=== PATIENT | female | born 1980 | race Caucasian/White ===

== ENCOUNTER 2016-07-24 11:48 | Emergency (ER) | payer OTHER ==
[2016-07-24 11:48] VITALS: BMI 28.3
[2016-07-24 12:19] VITALS: TEMP 98; O2SAT 100
[2016-07-24] MEDS ORDERED: Famotidine 20mg/50ml 50 ML IV STA (12:51)
[2016-07-24 13:08] LABS: PH,URINE 7.5 (4.7-8.0); URINE BILIRUBIN NEGATIVE (NEGATIVE); URINE BLOOD SMALL (NEGATIVE); URINE GLUCOSE (UA) NEGATIVE (NEGATIVE); URINE KETONE NEGATIVE (NEGATIVE); URINE LEUKOCYTE ESTERASE TRACE Leu/uL (NEGATIVE); URINE PROTEIN NEGATIVE mg/dL (<30 mg/dL); URINE UROBILINOGEN 0.2 E.U./dL (<1 E.U./dL)
[2016-07-24 13:11] LABS: URINE APPEARANCE CLEAR (CLEAR); URINE COLOR YELLOW (YELLOW)
[2016-07-24 13:28] LABS: ADD MANUAL DIFF? NO
[2016-07-24 13:41] LABS: ALB/GLOB RATIO 0.9 (1.1-1.8); ALKALINE PHOSPHATASE 39 U/L (38-133); ALT/SGPT 10 U/L (7-56); AST/SGOT 37 U/L (15-39); BLOOD UREA NITROGEN 14 mg/dL (7-21); CALCIUM 9.9 mg/dL (8.4-10.5); CARBON DIOXIDE 27 mmol/L (21-33); CHLORIDE 98 mmol/L (98-107); GFR AFRICAN-AMERICAN > 60; GLUCOSE,RANDOM 81 mg/dL (70-110); LIPASE 153 U/L (23-300); POTASSIUM 4.9 mmol/L (3.6-5.0); SODIUM 136 mmol/L (132-148); TOTAL PROTEIN 9.3 g/dL (5.8-8.3)
[2016-07-24] MEDS ORDERED: Iohexol 350 MG/100 ML VIAL ONE (13:54)
[2016-07-24 13:55] LABS: BASO # 0.02 K/mm3 (0.0-2.0); BASO % 0.5 % (0.0-3.0); EOS # 0.1 (0.0-0.7); EOS % 1.4 % (1.5-5.0); GRAN # 1.94 (1.4-6.5); GRAN % 44.1 % (50.0-68.0); HEMATOCRIT 37.6 % (36.0-48.0); LYMPH # 2.2 (1.2-3.4); LYMPH % 49.4 % (22.0-35.0); MEAN CELL VOLUME 87.2 fL (80.0-105.0); MEAN CORPUSCULAR HEMOGLOBIN 28.8 pg (25.0-35.0); MEAN PLATELET VOLUME 12.2 fl (7.0-11.0); MONO # 0.2 (0.1-0.6); MONO % 4.6 % (1.0-6.0); PLATELET COUNT 265 10^3/uL (120.0-450.0); RED CELL DISTRIBUTION WIDTH 13.9 % (11.5-14.5); WHITE BLOOD COUNT 4.4 10^3/ul (4.5-11.0)
[2016-07-24 13:58] LABS: INR 0.91 (0.93-1.08); PARTIAL THROMBOPLASTIN TIME 23.7 Seconds (23.7-30.8)
--- NOTE | 2016-07-24 15:09 | ED PDOC ---
Arrival/HPI - General Chief Complaint: GI Problem Time Seen by Provider: 07/24/16 12:48 - History of Present Illness Narrative History of Present Illness (Text): 07/24/16 15:01 35-year-old female presents emergency Department with one-week duration generalized abdominal pain. Patient states that she has no relieving or exacerbating factors to her pain, which feels like cramping. Denies nausea or vomiting. States that her stool has been more loose than usual. Denies recent travel. Denies fevers or chills. Past Medical History - Provider Review Nursing Documentation Reviewed: Yes - Past History Past History: No Previous - Infectious Disease Hx of Infectious Diseases: None - Tetanus Immunization Tetanus Immunization: Unknown - Past Medical History Past Medical History: No Previous - Psychiatric Hx Substance Use: No - Past Surgical History Past Surgical History: No Previous Family/Social History Family/Social History: Unknown Family HX Smoking Status: Never Smoked Hx Alcohol Use: No Hx Substance Use: No Allergies/Home Meds Allergies/Adverse Reactions: Allergies No Known Allergies Allergy (Verified 07/24/16 12:19) Physical Exam - Physical Exam Narrative Physical Exam (Text): - Review of Systems Constitutional: Normal. absent: Fatigue, Weight Change, Fevers Eyes: Normal ENT: denies sore throat, denies tristhmus Respiratory: Normal. absent: SOB, Cough, Sputum Cardiovascular: absent: Chest Pain, Palpitations, Syncope Gastrointestinal: Abdominal Pain. absent: Diarrhea, Nausea, Vomiting Genitourinary: Normal. absent: Dysuria, Frequency, Hematuria, vaginal bleeding Musculoskeletal: Normal. absent: Arthralgias, Back Pain, Neck Pain Skin: no rashes, no erythema Neurological: absent: Focal Weakness Endocrine: Normal Hemo/Lymphatic: Normal Psychiatric: No suicidal or homicidal ideations Physical exam Patient appears age appropriate in no distress, speaking full sentences without difficulty - Systems Exam Head: Present: Atraumatic, Normocephalic Pupils: Present: PERRL Extroacular Muscles: Present: EOMI Conjunctiva: Present: Normal Mouth: Present: Moist Mucous Membranes Neck: Present: Normal Range of Motion. No: MIDLINE TENDERNESS, Paraspinal Tenderness Respiratory/Chest: Present: Clear to Auscultation, Good Air Exchange. No: Respiratory Distress, Accessory Muscle Use, Tachypneic Cardiovascular: Present: Regular Rate and Rhythm, Normal S1, S2, Peripheal Pulses Present. No: Murmurs Abdomen: Present: Normal Bowel Sounds. Right lower quadrant, left lower quadrant, suprapubic, right upper quadrant tenderness palpation. No: Distention , Peritoneal Signs, Rebound, Guarding Back: Present: Normal Inspection. No: Midline Tenderness, Paraspinal Tenderness Upper Extremity: Present: Normal Inspection. No: Cyanosis, Edema Lower Extremity: Present: Normal Inspection. No: Edema Neurological: Present: GCS=15, Speech Normal, cranial nerves II through XII fully intact with no cerebellar abnormality, neurosensory fully intact. No focal neurological deficits. Skin: Present: Warm, Dry, Normal Color. No: Rashes Lymphatic: Present: OX3, NI, NC Psychiatric: Present: Alert, Oriented x 3, Normal Insight, Normal Concentration Vital Signs Reviewed: Yes Vital Signs Temp Pulse Resp BP Pulse Ox 07/24/16 15:22 78 16 115/70 100 07/24/16 12:14 98 F 79 18 128/82 100 Temperature: Afebrile Blood Pressure: Normal Pulse: Regular Respiratory Rate: Normal Appearance: Positive for: Well-Appearing Pain Distress: None Mental Status: Positive for: Alert and Oriented X 3 Medical Decision Making ED Course and Treatment: 07/24/16 15:09 35-year-old female with one week duration diffuse abdominal discomfort. Abdomen tender to palpation on examination, with no rebound or guarding. Imaging, labs, and pain meds ordered. 07/24/16 16:19 No acute findings on patient's CAT scan 07/24/16 17:06 On reevaluation, patient reports that she feels much better and would like to be discharged home. Patient's repeat abdominal exam is soft, nontender, non distended with positive bowel sounds in all 4 quadrants and no peritoneal signs. Patient is tolerating PO without any difficulty. Patient had a prescription with her for H. pylori testing to be done. I recommended the patient follow up with a blister packaging machine operator and outpatient laboratory for further H. pylori workup and testing. I also explained that this may be the cause of her symptoms, went over proper dieting, and also let her know that she will be receiving a PPI prescription. Pt states she understands to return to the ER right away for new or worsening symptoms or for inability to f/u with PMD or specialist as instructed. Patient states that she fully agrees with and understands discharge instructions. States that she agrees with the plan and disposition. Verbalized and repeated discharge instructions and plan. I have given the patient opportunity to ask any additional questions. Patient encounter provided via chart collector service, [facility] - Lab Interpretations Lab Results: 07/24/16 13:27 07/24/16 13:27 Lab Results 07/24/16 13:27: WBC 4.4 L, RBC 4.31, Hgb 12.4, Hct 37.6, MCV 87.2, MCH 28.8, MCHC 33.0, RDW 13.9, Plt Count 265, MPV 12.2 H, Gran % 44.1 L, Lymph % (Auto) 49.4 H, [place] % (Auto) 4.6, Eos % (Auto) 1.4 L, Baso % (Auto) 0.5, Gran # 1.94, Lymph # 2.2, [place] # 0.2, Eos # 0.1, Baso # 0.02, PT 9.8 L, INR 0.91 L, APTT 23.7 , Sodium 136, Potassium 4.9, Chloride 98, Carbon Dioxide 27, Anion Gap 16, BUN 14, Creatinine 0.6, Est GFR ( Amer) > 60, Est GFR (Non-Af Amer) > 60, Random Glucose 81, Calcium 9.9, Total Bilirubin 1.0, AST 37, ALT 10, Alkaline Phosphatase 39, Total Protein 9.3 H, Albumin 4.5, Globulin 4.8, Albumin/ Globulin Ratio 0.9 L, Lipase 153 07/24/16 13:00: Urine Color Yellow, Urine Appearance Clear, Urine pH 7.5, Ur Specific [place] 1.015, Urine Protein Negative, Urine Glucose (UA) Negative, Urine Ketones Negative, Urine Blood Small H, Urine Nitrate Negative, Urine Bilirubin Negative, Urine Urobilinogen 0.2, Ur Leukocyte Esterase Trace H, Urine RBC 1 - 3, Urine WBC 1 - 3, Ur Epithelial Cells 3 - 4 - RAD Interpretation Narrative RAD Interpretations (Text): 07/24/16 16:19 Pinball Machine Repairer : Luis Cristina MD Approver2 : Report Date : 07/24/2016 15:25:08 My Comment : PROCEDURE: CT Abdomen and Pelvis with contrast HISTORY: abd pain COMPARISON: None. TECHNIQUE: Contrast dose: 100 mL Omnipaque 350 Radiation dose: Total exam DLP = 402.83 mGy-cm. FINDINGS: LOWER THORAX: Unremarkable. LIVER: Unremarkable. No gross lesion or ductal dilatation. GALLBLADDER AND BILE DUCTS: Unremarkable. PANCREAS: Unremarkable. No gross lesion or ductal dilatation. SPLEEN: Unremarkable. ADRENALS: Unremarkable. No mass. KIDNEYS AND URETERS: Unremarkable. No hydronephrosis. No solid mass. VASCULATURE: Unremarkable. No aortic aneurysm. BOWEL: Unremarkable. No obstruction. No gross mural thickening. APPENDIX: Normal appendix. PERITONEUM: Trace fluid in cul-de-sac. LYMPH NODES: Unremarkable. No enlarged lymph nodes. BLADDER: Unremarkable. REPRODUCTIVE: Normal uterus. BONES: No acute fracture. OTHER FINDINGS: None. IMPRESSION: Unremarkable abdominal/ pelvic CT examination. Radiology Orders: 07/24/16 12:48 ABD & PELVIS IV CONTRAST ONLY [CT] Stat Edge Stainer Machine: Radiologist - Medication Orders Current Medication Orders: Discontinued Medications Famotidine (Pepcid 20mg/50ml Premix) 50 mls @ 100 mls/hr IV STAT STA Stop: 07/24/16 13:20 Last Admin: 07/24/16 13:27 Dose: 100 MLS/HR eMAR Start Stop Document 07/24/16 13:27 SF (Rec: 07/24/16 13:28 [id number] Intravenous Solution Start Date 07/24/16 Start Time 13:28 End Date 07/24/16 End time 13:58 Total Infusion Time 30 Iohexol (Omnipaque 350 100 Ml) Confirm Administered Dose 350 mg .ROUTE .STK-MED ONE Stop: 07/24/16 13:55 Ketorolac Tromethamine (Toradol) 15 mg IVP STAT STA Stop: 07/24/16 12:52 Last Admin: 07/24/16 13:28 Dose: 15 MG IVP Administration Document 07/24/16 13:28 SF (Rec: 07/24/16 13:28 SF [id number]) Charges for Administration # of IVP Administrations 1 Ondansetron HCl (Zofran Inj) 4 mg IVP STAT STA Stop: 07/24/16 12:52 Last Admin: 07/24/16 13:28 Dose: 4 MG IVP Administration Document 07/24/16 13:28 SF (Rec: 07/24/16 13:28 [id number]) Charges for Administration # of IVP Administrations 1 Disposition/Present on Arrival - Present on Arrival Any Indicators Present on Arrival: No History of DVT/PE: No History of Uncontrolled Diabetes: No Urinary Catheter: No History of Decub. Ulcer: No History Surgical Site Infection Following: None - Disposition Have Diagnosis and Disposition been Completed?: Yes Diagnosis: Abdominal pain Disposition: HOME/ ROUTINE Disposition Time: 17:06 Patient Plan: Discharge Condition: GOOD Discharge Instructions (ExitCare): Abdominal Pain (ED), Gas and Bloating (ED) Additional Instructions: PLEASE RETURN TO THE EMERGENCY DEPARTMENT FOR NEW OR WORSENING SYMPTOMS. RETURN RIGHT AWAY IF YOU CANNOT FOLLOW UP WITH YOUR PRIMARY CARE DOCTOR, CLINIC, OR SPECIALIST IN 1-2 DAYS. Prescriptions: Pantoprazole Sodium [Protonix] 40 mg PO DAILY #14 ect Referrals: PCP,NO [Primary Care Provider] - Follow up with primary Cat Killian MD [Staff Provider] - Follow up with primary Zulay Cowart MD [Medical Doctor] - Follow up with primary
[2016-07-24 15:23] VITALS: RESP 16
--- NOTE | 2016-07-24 15:26 | CT ---
PROCEDURE: CT Abdomen and Pelvis with contrast HISTORY: abd pain COMPARISON: None. TECHNIQUE: Contrast dose: 100 mL Omnipaque 350 Radiation dose: Total exam DLP = 402.83 mGy-cm. FINDINGS: LOWER THORAX: Unremarkable. LIVER: Unremarkable. No gross lesion or ductal dilatation. GALLBLADDER AND BILE DUCTS: Unremarkable. PANCREAS: Unremarkable. No gross lesion or ductal dilatation. SPLEEN: Unremarkable. ADRENALS: Unremarkable. No mass. KIDNEYS AND URETERS: Unremarkable. No hydronephrosis. No solid mass. VASCULATURE: Unremarkable. No aortic aneurysm. BOWEL: Unremarkable. No obstruction. No gross mural thickening. APPENDIX: Normal appendix. PERITONEUM: Trace fluid in cul-de-sac. LYMPH NODES: Unremarkable. No enlarged lymph nodes. BLADDER: Unremarkable. REPRODUCTIVE: Normal uterus. BONES: No acute fracture. OTHER FINDINGS: None. IMPRESSION: Unremarkable abdominal/ pelvic CT examination.
[2016-07-24 17:31] VITALS: BP 101/71; PULSE 80
== END 2016-07-24 17:33 | disposition home or self-care (01) ==
LOC: ED 11:48
DX: R10.9 Unspecified abdominal pain (principal)
CPT/HCPCS: 74177; 80053; 81001; 83690; 85025; 85610; 85730; 87040; 87086; 96365; 96375; 99285; J1885; J2405; Q9967

== ENCOUNTER 2016-08-20 18:40 | Emergency (ER) | payer OTHER ==
--- NOTE | 2016-08-20 18:47 | ED PDOC ---
Arrival/HPI - General Time Seen by Provider: 08/20/16 18:43 Historian: Patient - History of Present Illness Narrative History of Present Illness (Text): 08/20/16 18:44 36 y/o female, no significant pmh, nkda, c/o lt. ankle and foot pain x 1 week with no fall or trauma. Aching pain, lt. foot sole radiating to the lt. calf region, no lower back pain, no rash, no numbness or tingling, no night sweat, no palpitation, no dizziness, no other medical or psychological complaints. Past Medical History - Provider Review Nursing Documentation Reviewed: Yes - Past History Past History: No Previous - Infectious Disease Hx of Infectious Diseases: None - Tetanus Immunization Tetanus Immunization: Unknown - Past Medical History Past Medical History: No Previous - Psychiatric Hx Substance Use: No - Past Surgical History Past Surgical History: No Previous Family/Social History - Physician Review Nursing Documentation Reviewed: Yes Family/Social History: Unknown Family HX Smoking Status: Never Smoked Hx Alcohol Use: No Hx Substance Use: No Allergies/Home Meds Allergies/Adverse Reactions: Allergies No Known Allergies Allergy (Verified 07/24/16 12:19) Review of Systems - Review of Systems Constitutional: absent: Fatigue, Fevers Eyes: absent: Vision Changes ENT: absent: Hearing Changes Respiratory: absent: Cough, Sputum Cardiovascular: absent: Chest Pain Gastrointestinal: absent: Abdominal Pain, Diarrhea, Nausea, Vomiting Musculoskeletal: Arthralgias, Myalgias. absent: Back Pain, Neck Pain, Joint Swelling Skin: absent: Rash, Pruritis, Skin Lesions Psychiatric: absent: Anxiety, Depression, Suicidal Ideation Physical Exam Vital Signs Temp Pulse Resp BP Pulse Ox 08/20/16 18:41 98.2 F 89 16 115/72 99 Pain Distress: Moderate Mental Status: Positive for: Alert and Oriented X 3 - Systems Exam Head: Present: Atraumatic, Normocephalic Pupils: Present: PERRL Extroacular Muscles: Present: EOMI Conjunctiva: Present: Normal Mouth: Present: Moist Mucous Membranes Neck: Present: Normal Range of Motion Respiratory/Chest: Present: Clear to Auscultation, Good Air Exchange. No: Respiratory Distress, Accessory Muscle Use Cardiovascular: Present: Regular Rate and Rhythm, Normal S1, S2. No: Murmurs Abdomen: Present: Normal Bowel Sounds. No: Tenderness, Distention, Peritoneal Signs Back: Present: Normal Inspection. No: Midline Tenderness, Paraspinal Tenderness Upper Extremity: Present: Normal Inspection. No: Cyanosis, Edema Lower Extremity: Present: Normal Inspection, Other (Lt. lower extremity: +ttp on the medial sole region plus lt. lateral malleolus region, negative kathe and parnell signs, no cellulitis or streaking, FROM without limitation, sensation intact, motor 5/5, +DPPT pulses, capillary refill< 2 seconds, neurovascular intact. ). No: Edema Neurological: Present: GCS=15, CN II-XII Intact, Speech Normal Skin: Present: Warm, Dry, Normal Color. No: Rashes Psychiatric: Present: Alert, Oriented x 3, Normal Insight, Normal Concentration Medical Decision Making ED Course and Treatment: 08/20/16 18:48 -lt. foot/ankle xray -LLE venuous doppler -Toradol IM -Observe and reassess 08/20/16 19:39 -pain decreased. -Xrays show no fracture or dislocation, rm wrap applied with neurovascular intact, crutches given and educated. -LLE Venuous doppler show no acute DVT. -Discharge home with crutches, rm wrap, indomethacin, weight bearing as tolerated, follow up with your own pmd and orthopedic within 2 days, return to the ER for any new or worsening signs or symptoms. - RAD Interpretation Radiology Orders: 08/20/16 18:49 ANKLE LEFT 3 VIEWS ROUTINE [RAD] Stat FOOT LEFT 3 VIEWS ROUTINE [RAD] Stat DUPLEX LOWER EXTRM VEIN LEFT [US] Stat Lt. ankle xray: normal radiograph Lt. foot xray: normal radiograph LLE Venuous Doppler: as per preliminary report, no acute DVT Dispensary Technician: Radiologist - Medication Orders Current Medication Orders: Discontinued Medications Ketorolac Tromethamine (Toradol) 60 mg IM STAT STA Stop: 08/20/16 18:50 Last Admin: 08/20/16 19:00 Dose: 60 mg Re-Assess: BANNER Pain Assessment Document 08/20/16 19:59 SF (Rec: 08/20/16 19:59 SF [id number]) Pain Reassessment Is this a pain reassessment? Yes Presence of Pain Presence of Pain No Pain Scale Used Pain Scale Used Numeric - PA / HEDIS REGISTERED NURSE RN / Resident Statement MD/DO has reviewed & agrees with the documentation as recorded. Disposition/Present on Arrival - Present on Arrival Any Indicators Present on Arrival: No History of DVT/PE: No History of Uncontrolled Diabetes: No Urinary Catheter: No History of Decub. Ulcer: No History Surgical Site Infection Following: None - Disposition Have Diagnosis and Disposition been Completed?: Yes Diagnosis: Pain, joint, ankle and foot, Plantar fasciitis Disposition: HOME/ ROUTINE Disposition Time: 19:41 Patient Plan: Discharge Condition: IMPROVED Additional Instructions: Discharge home with crutches, rm wrap, indomethacin, weight bearing as tolerated, follow up with your own pmd and orthopedic within 2 days, return to the ER for any new or worsening signs or symptoms. Prescriptions: Indomethacin [Indocin] 50 mg PO TID PRN #21 cap PRN Reason: Other Referrals: Jose Gar DO [Staff Provider] - Follow up with primary [facility] - Follow up with primary Forms: WORK NOTE
[2016-08-20 18:49] VITALS: BMI 32.8
[2016-08-20 19:12] VITALS: BP 115/72; PULSE 89; RESP 16; TEMP 98.2; O2SAT 99
--- NOTE | 2016-08-21 08:36 | US ---
PROCEDURE: Left lower extremity venous US HISTORY: Leg pain and swelling. Evaluate for DVT. PHYSICIAN(S): Luis Tejada MD. TECHNIQUE: Duplex sonography and color-flow Doppler with graded compression were used to evaluate the deep venous system of the left lower extremity. FINDINGS: The visualized deep venous system of the left lower extremity is sonographically normal and compressible. Normal wave forms and augmentation are seen. There is no sonographic evidence for deep venous thrombosis in the visualized segments of the left lower extremity. IMPRESSION: 1. No sonographic evidence for deep venous thrombosis in the visualized segments of the left lower extremity.
--- NOTE | 2016-08-21 08:45 | RAD ---
PROCEDURE: Left Ankle Radiographs. HISTORY: lt. lateral ankle pain COMPARISON: None FINDINGS: BONES: Normal. No fracture. JOINTS: Normal. No osteoarthritis. Ankle mortise maintained. Talar dome intact SOFT TISSUES: Normal. OTHER FINDINGS: None. IMPRESSION: Normal left ankle radiographs.
--- NOTE | 2016-08-21 08:46 | RAD ---
PROCEDURE: Left Foot Radiographs. HISTORY: sole pain COMPARISON: None. FINDINGS: BONES: Normal. No fracture. JOINTS: Normal. SOFT TISSUES: Normal. OTHER FINDINGS: None. IMPRESSION: Normal left foot radiographs.
== END 2016-08-20 20:07 | disposition home or self-care (01) ==
LOC: ED 18:40
DX: M72.2 Plantar fascial fibromatosis (principal); M25.572 Pain in left ankle and joints of left foot
CPT/HCPCS: 73610; 73630; 93971; 96372; 99284; J1885

== ENCOUNTER 2016-08-28 10:03 | Emergency (ER) | payer OTHER ==
[2016-08-28 10:04] VITALS: BMI 32.8
[2016-08-28 10:26] VITALS: BP 120/76; PULSE 76; TEMP 98.7; O2SAT 100
[2016-08-28 10:30] VITALS: RESP 18
--- NOTE | 2016-08-28 10:36 | ED PDOC ---
Arrival/HPI - General Chief Complaint: Lower Extremity Problem/Injury Time Seen by Provider: 08/28/16 10:31 Historian: Patient - History of Present Illness Narrative History of Present Illness (Text): 08/28/16 10:32 36yo female present to ED with complaint of left ankle pain. Patient was seen here on 08/20/16 for same complaint and DC home after a negative Doppler and xray. she states she came back to the ED because she is still having same pain and not sure of who to follow up with. She denies any recent trauma, calf pain, SOB, any other complaint. Past Medical History - Provider Review Nursing Documentation Reviewed: Yes - Past History Past History: No Previous - Infectious Disease Hx of Infectious Diseases: None - Tetanus Immunization Tetanus Immunization: Unknown - Reproductive Menopause: No - Past Medical History Past Medical History: No Previous - Cardiac Hx Cardiac Disorders: No - Pulmonary Hx Respiratory Disorders: No - Neurological Hx Neurological Disorder: No - HEENT Hx HEENT Disorder: No - Renal Hx Renal Disorder: No - Endocrine/Metabolic Hx Endocrine Disorders: No - Hematological/Oncological Hx Blood Disorders: No - Integumentary Hx Dermatological Disorder: No - Musculoskeletal/Rheumatological Hx Musculoskeletal Disorders: No - Gastrointestinal Hx Gastrointestinal Disorders: No - Genitourinary/Gynecological Hx Genitourinary Disorders: No - Psychiatric Hx Psychophysiologic Disorder: No Hx Substance Use: No - Past Surgical History Past Surgical History: No Previous - Anesthesia Hx Anesthesia: No Hx Anesthesia Reactions: No Hx Malignant Hyperthermia: No Family/Social History - Physician Review Nursing Documentation Reviewed: Yes Family/Social History: Unknown Family HX Smoking Status: Never Smoked Hx Alcohol Use: No Hx Substance Use: No Allergies/Home Meds Allergies/Adverse Reactions: Allergies No Known Allergies Allergy (Verified 07/24/16 12:19) Home Medications: Home Meds Medication Instructions Recorded Confirmed No Known Home Med 08/28/16 08/28/16 Review of Systems - Physician Review All systems were reviewed & negative as marked: Yes - Review of Systems Constitutional: Normal Eyes: Normal ENT: Normal Respiratory: Normal Cardiovascular: Normal Gastrointestinal: Normal Genitourinary Female: Normal Musculoskeletal: Arthralgias (Left ankle pain) Skin: Normal Neurological: Normal Endocrine: Normal Hemo/Lymphatic: Normal Psychiatric: Normal Physical Exam Vital Signs Reviewed: Yes Vital Signs Temp Pulse Resp BP Pulse Ox 08/28/16 10:29 98.7 F 76 18 120/76 100 08/28/16 10:23 98.7 F 76 16 120/76 100 Temperature: Afebrile Blood Pressure: Normal Pulse: Regular Respiratory Rate: Normal Appearance: Positive for: Well-Appearing, Non-Toxic, Comfortable Pain Distress: None Mental Status: Positive for: Alert and Oriented X 3 - Systems Exam Head: Present: Atraumatic, Normocephalic Pupils: Present: PERRL Extroacular Muscles: Present: EOMI Conjunctiva: Present: Normal Mouth: Present: Moist Mucous Membranes Neck: Present: Normal Range of Motion Respiratory/Chest: Present: Clear to Auscultation, Good Air Exchange. No: Respiratory Distress, Accessory Muscle Use Cardiovascular: Present: Regular Rate and Rhythm, Normal S1, S2. No: Murmurs Abdomen: Present: Normal Bowel Sounds. No: Tenderness, Distention, Peritoneal Signs Back: Present: Normal Inspection Upper Extremity: Present: Normal Inspection. No: Cyanosis, Edema Lower Extremity: Present: Normal Inspection, NORMAL PULSES, Normal ROM, Neurovascularly Intact. No: Edema, CALF TENDERNESS, Tenderness, Swelling, Erythema, Deformity, Temperature Abnormalties Neurological: Present: GCS=15, CN II-XII Intact, Speech Normal Skin: Present: Warm, Dry, Normal Color. No: Rashes Psychiatric: Present: Alert, Oriented x 3, Normal Insight, Normal Concentration Medical Decision Making ED Course and Treatment: 08/28/16 10:34 Pt's chart from 08/20/16 was reviewed and they was Doppler Us, foot and ankle xray was negative. Pt was referred to Dr. Gar on her last visit. She was ambulatory with a normal gait in ED. She was given Ibuprofen in ED and referred to Dr. Gar and ortho clinic again. TRT ED for any further symptoms. Disposition/Present on Arrival - Present on Arrival Any Indicators Present on Arrival: No History of DVT/PE: No History of Uncontrolled Diabetes: No Urinary Catheter: No History of Decub. Ulcer: No History Surgical Site Infection Following: None - Disposition Have Diagnosis and Disposition been Completed?: Yes Diagnosis: Foot pain Disposition: HOME/ ROUTINE Disposition Time: 10:40 Patient Plan: Discharge Condition: STABLE Discharge Instructions (ExitCare): Arthralgia (ED) Additional Instructions: Follow up with orthopedist Return to ED for any new symptoms Referrals: Jose Gar, DO [Staff Provider] - Follow up with primary [facility] [place] [Outside] - Follow up with primary
== END 2016-08-28 11:23 | disposition home or self-care (01) ==
LOC: ED 10:03
DX: M25.572 Pain in left ankle and joints of left foot (principal)

== ENCOUNTER 2017-05-09 07:09 | Emergency (ER) | payer OTHER ==
[2017-05-09 07:09] VITALS: BMI 32.8
[2017-05-09 07:48] VITALS: TEMP 98.5
[2017-05-09 08:23] LABS: URINE BILIRUBIN SMALL (NEGATIVE); URINE BLOOD LARGE (NEGATIVE); URINE GLUCOSE (UA) NEGATIVE (NEGATIVE); URINE LEUKOCYTE ESTERASE SMALL Leu/uL (NEGATIVE); URINE NITRATE NEGATIVE (NEGATIVE); URINE PROTEIN 30 mg/dL (<30 mg/dL); URINE UROBILINOGEN 0.2 E.U./dL (<1 E.U./dL)
--- NOTE | 2017-05-09 08:24 | ED PDOC ---
Arrival/HPI - General Chief Complaint: Abdominal Pain Time Seen by Provider: 05/09/17 08:07 Historian: Patient - History of Present Illness Narrative History of Present Illness (Text): 05/09/17 13:31 A 36 year old female, who denies any significant past medical history, presents to the emergency department for vomiting last night into this morning and she notes body aches that began 3 days ago. The patient report she has multiple sick contacts at home who have similar complaints. She denies any fever, diarrhea, cough, chest pain, shortness of breath, or any other complaints at this time. Time/Duration: 24 hours Symptom Onset: Gradual Symptom Course: Unchanged Quality: Aching Activities at Onset: Light Context: Home Past Medical History - Provider Review Nursing Documentation Reviewed: Yes - Past History Past History: No Previous - Infectious Disease Hx of Infectious Diseases: None - Tetanus Immunization Tetanus Immunization: Unknown - Past Medical History Past Medical History: No Previous - Cardiac Hx Cardiac Disorders: No - Pulmonary Hx Respiratory Disorders: No - Neurological Hx Neurological Disorder: No - HEENT Hx HEENT Disorder: No - Renal Hx Renal Disorder: No - Endocrine/Metabolic Hx Endocrine Disorders: No - Hematological/Oncological Hx Blood Disorders: No - Integumentary Hx Dermatological Disorder: No - Musculoskeletal/Rheumatological Hx Musculoskeletal Disorders: No - Gastrointestinal Hx Gastrointestinal Disorders: No - Genitourinary/Gynecological Hx Genitourinary Disorders: No - Psychiatric Hx Psychophysiologic Disorder: No Hx Substance Use: No - Past Surgical History Past Surgical History: No Previous - Anesthesia Hx Anesthesia: No Hx Anesthesia Reactions: No Hx Malignant Hyperthermia: No Family/Social History - Physician Review Nursing Documentation Reviewed: Yes Family/Social History: No Known Family HX Smoking Status: Never Smoked Hx Alcohol Use: No Hx Substance Use: No Allergies/Home Meds Allergies/Adverse Reactions: Allergies No Known Allergies Allergy (Verified 05/09/17 07:48) Review of Systems - Physician Review All systems were reviewed & negative as marked: Yes - Review of Systems Constitutional: absent: Fevers Respiratory: absent: SOB, Cough Gastrointestinal: Abdominal Pain, Nausea, Vomiting. absent: Diarrhea Physical Exam Vital Signs Reviewed: Yes Vital Signs Temp Pulse Resp BP Pulse Ox 05/09/17 09:47 93 H 18 110/82 100 05/09/17 07:45 98.5 F 99 H 16 105/71 97 Temperature: Afebrile Blood Pressure: Normal Pulse: Tachycardic Respiratory Rate: Normal Appearance: Positive for: Well-Appearing, Non-Toxic, Comfortable Pain Distress: None Mental Status: Positive for: Alert and Oriented X 3 - Systems Exam Head: Present: Atraumatic, Normocephalic Pupils: Present: PERRL Extroacular Muscles: Present: EOMI Conjunctiva: Present: Normal Mouth: Present: Moist Mucous Membranes Neck: Present: Normal Range of Motion Respiratory/Chest: Present: Clear to Auscultation, Good Air Exchange. No: Respiratory Distress, Accessory Muscle Use Cardiovascular: Present: Regular Rate and Rhythm, Normal S1, S2. No: Murmurs Abdomen: Present: Normal Bowel Sounds. No: Tenderness, Distention, Peritoneal Signs Back: Present: Normal Inspection Upper Extremity: Present: Normal Inspection. No: Cyanosis, Edema Lower Extremity: Present: Normal Inspection. No: Edema Neurological: Present: GCS=15, CN II-XII Intact, Speech Normal Skin: Present: Warm, Dry, Normal Color. No: Rashes Psychiatric: Present: Alert, Oriented x 3, Normal Insight, Normal Concentration Medical Decision Making ED Course and Treatment: 05/09/17 08:29 Impression: A 36 year old female with abdominal pain. Differential Diagnosis included but are not limited to: Plan: -- Urine culture -- test -- Influenza B -- Reassess and disposition Progress Notes: - Lab Interpretations Lab Results: Lab Results 05/09/17 08:19: Urine Color Yellow, Urine Appearance Cloudy, Urine pH 6.0, Ur Specific [place] 1.020, Urine Protein 30 H, Urine Glucose (UA) Negative, Urine Ketones >=80, Urine Blood Large H, Urine Nitrate Negative, Urine Bilirubin Small H, Urine Urobilinogen 0.2, Ur Leukocyte Esterase Small H, Urine RBC 2 - 5 , Urine WBC 1 - 3, Ur Epithelial Cells 10 - 12, Urine Bacteria Few 05/09/17 08:19: Influenza Typ A,B (EIA) Negative for flu a/b - Scribe Statement The provider has reviewed the documentation as recorded by the Tr Mcintyre Provider Scribe Attestation: All medical record entries made by the Scribe were at my direction and personally dictated by me. I have reviewed the chart and agree that the record accurately reflects my personal performance of the history, physical exam, medical decision making, and the department course for this patient. I have also personally directed, reviewed, and agree with the discharge instructions and disposition. Disposition/Present on Arrival - Present on Arrival Any Indicators Present on Arrival: No History of DVT/PE: No History of Uncontrolled Diabetes: No Urinary Catheter: No History of Decub. Ulcer: No History Surgical Site Infection Following: None - Disposition Have Diagnosis and Disposition been Completed?: Yes Diagnosis: Viral syndrome, UTI (urinary tract infection) Disposition: HOME/ ROUTINE Disposition Time: 09:00 Condition: GOOD Discharge Instructions (ExitCare): Urinary Tract Infection in Women (ED), Viral Syndrome (ED) Additional Instructions: Thank you for letting us take care of you today. The emergency medical care you received today was directed at your acute symptoms. If you were prescribed any medication, please fill it and take as directed. It may take several days for your symptoms to resolve. Return to the Emergency Department if your symptoms worsen, do not improve, or if you have any other problems. Please contact your doctor or call one of the physicians/clinics you have been referred to that are listed on the Patient Visit Information form that is included in your discharge packet. Bring any paperwork you were given at discharge with you along with any medications you are taking to your follow up visit. Our treatment cannot replace ongoing medical care by a primary care provider (PCP) outside of the emergency department. [facility] you [facility] to be part of your care today. Follow up with the clinic in 2-3 days for re-evaluation and further management. Prescriptions: Nitrofurantoin Macrocrystals [Macrobid] 100 mg PO BID #10 cap Ondansetron ODT [Zofran ODT] 4 mg PO Q8 PRN #15 odt PRN Reason: Nausea/Vomiting Referrals: [facility] [Outside] - [place] up [place] [facility] [place] [facility] [place] - Follow up with primary Forms: [employer]) (Tristanian)
[2017-05-09 08:56] LABS: URINE APPEARANCE CLOUDY (CLEAR); URINE COLOR YELLOW (YELLOW)
[2017-05-09 09:01] LABS: URINE BACTERIA FEW (NEG)
[2017-05-09 09:48] VITALS: BP 110/82; PULSE 93; RESP 18; O2SAT 100
== END 2017-05-09 09:48 | disposition home or self-care (01) ==
LOC: ED 07:09
DX: B34.9 Viral infection, unspecified (principal); N39.0 Urinary tract infection, site not specified

== ENCOUNTER 2017-07-22 20:46 | Emergency (ER) | payer OTHER ==
[2017-07-22 20:46] VITALS: BMI 32.8
--- NOTE | 2017-07-22 22:21 | ED PDOC ---
Arrival/HPI - General Chief Complaint: Back Pain Time Seen by Provider: 07/22/17 21:22 Historian: Patient - History of Present Illness Narrative History of Present Illness (Text): 07/22/17 22:20 A 36 year old female presents to the emergency department complaining of neck pain and left shoulder pain for two weeks. Patient reports she has been taking pain medications without any relief. Patient denies any fever or any other complaints at this time. Time/Duration: > week Symptom Onset: Sudden Symptom Course: Unchanged Activities at Onset: Rest Context: Home Past Medical History - Provider Review Nursing Documentation Reviewed: Yes - Past History Past History: No Previous - Infectious Disease Hx of Infectious Diseases: None - Tetanus Immunization Tetanus Immunization: Unknown - Reproductive Menopause: No - Past Medical History Past Medical History: No Previous - Cardiac Hx Cardiac Disorders: No - Pulmonary Hx Respiratory Disorders: No - Neurological Hx Neurological Disorder: No - HEENT Hx HEENT Disorder: No - Renal Hx Renal Disorder: No - Endocrine/Metabolic Hx Endocrine Disorders: No - Hematological/Oncological Hx Blood Disorders: No - Integumentary Hx Dermatological Disorder: No - Musculoskeletal/Rheumatological Hx Musculoskeletal Disorders: No - Gastrointestinal Hx Gastrointestinal Disorders: No - Genitourinary/Gynecological Hx Genitourinary Disorders: No - Psychiatric Hx Psychophysiologic Disorder: No Hx Substance Use: No - Past Surgical History Past Surgical History: No Previous - Anesthesia Hx Anesthesia: No Hx Anesthesia Reactions: No Hx Malignant Hyperthermia: No Family/Social History - Physician Review Nursing Documentation Reviewed: Yes Family/Social History: No Known Family HX Smoking Status: Never Smoked Hx Alcohol Use: No Hx Substance Use: No Allergies/Home Meds Allergies/Adverse Reactions: Allergies No Known Allergies Allergy (Verified 05/09/17 07:48) Home Medications: Home Meds Medication Instructions Recorded Confirmed Meloxicam 15 mg PO DAILY 07/22/17 07/22/17 Review of Systems - Physician Review All systems were reviewed & negative as marked: Yes - Review of Systems Constitutional: absent: Fevers Musculoskeletal: Neck Pain, Other (left shoulder pain) Physical Exam Vital Signs Reviewed: Yes Vital Signs Temp Pulse Resp BP Pulse Ox 07/22/17 23:15 98.4 F 84 18 135/67 99 07/22/17 21:12 99.4 F 89 18 146/64 98 Temperature: Afebrile Blood Pressure: Normal Pulse: Regular Respiratory Rate: Normal Appearance: Positive for: Well-Appearing, Non-Toxic, Comfortable Pain Distress: None Mental Status: Positive for: Alert and Oriented X 3 - Systems Exam Head: Present: Atraumatic, Normocephalic Pupils: Present: PERRL Extroacular Muscles: Present: EOMI Conjunctiva: Present: Normal Mouth: Present: Moist Mucous Membranes Neck: Present: Other (paravertebral muscle tenderness) Respiratory/Chest: Present: Clear to Auscultation, Good Air Exchange. No: Respiratory Distress, Accessory Muscle Use Cardiovascular: Present: Regular Rate and Rhythm, Normal S1, S2. No: Murmurs Abdomen: Present: Normal Bowel Sounds. No: Tenderness, Distention, Peritoneal Signs Back: Present: Normal Inspection Upper Extremity: Present: Other (pain with abduction of left arm). No: Cyanosis , Edema Lower Extremity: Present: Normal Inspection. No: Edema Neurological: Present: GCS=15, CN II-XII Intact, Speech Normal Skin: Present: Warm, Dry, Normal Color. No: Rashes Psychiatric: Present: Alert, Oriented x 3, Normal Insight, Normal Concentration Medical Decision Making ED Course and Treatment: 07/22/17 22:19 Impression: A 36 year old female with left shoulder pain and neck pain. Plan: -- Radiology left shoulder -- Radiology cervical spine -- Toradol -- Reassess and disposition Prior Visits: Notes and results from previous visits were reviewed. Patient was last seen in the emergency department on 05/09/17 for evaluation of vomiting and body aches. Progress Notes: 07/22/17 23:26 Radiology of cervical spine- curvature of spine, unremarkable, as read by me. Radiology of left shoulder- unremarkable, as read by me. 07/22/17 23:28 On re-evaluation, patient feels better and is in no acute distress. I have discussed the results and plan with the patient, who expresses understanding. Patient in agreement with plan to be discharged home. Patient is stable for discharge. Patient was instructed to follow up with physician or return if symptoms worsen or new concerning symptoms arise. - RAD Interpretation Radiology Orders: 07/22/17 21:45 SHOULDER LEFT [RAD] Stat 07/22/17 21:46 CERVICAL SPINE >18YR W/OBLIQUE [RAD] Stat - Medication Orders Current Medication Orders: Discontinued Medications Ketorolac Tromethamine (Toradol) 30 mg IM ONCE ONE Stop: 07/22/17 21:47 Last Admin: 07/22/17 22:14 Dose: 30 mg MAR Pain Assessment Document 07/22/17 22:14 CNR (Rec: 07/22/17 22:15 CNR [id number]) Pain Reassessment Is this a pain reassessment? Yes Location Upper or Lower Upper Pain Location Body Site Back IM Administration Charges Document 07/22/17 22:14 CNR (Rec: 07/22/17 22:15 CNR [id number]) Injection Site MAR Injection Site Right Deltoid Charges for Administration # of IM Administrations 1 - Scribe Statement The provider has reviewed the documentation as recorded by the Tr Huang Provider Scribe Attestation: All medical record entries made by the Scribe were at my direction and personally dictated by me. I have reviewed the chart and agree that the record accurately reflects my personal performance of the history, physical exam, medical decision making, and the department course for this patient. I have also personally directed, reviewed, and agree with the discharge instructions and disposition. Disposition/Present on Arrival - Present on Arrival Any Indicators Present on Arrival: No History of DVT/PE: No History of Uncontrolled Diabetes: No Urinary Catheter: No History of Decub. Ulcer: No History Surgical Site Infection Following: None - Disposition Have Diagnosis and Disposition been Completed?: Yes Diagnosis: Cervical sprain Disposition: HOME/ ROUTINE Disposition Time: 23:30 Condition: GOOD Discharge Instructions (ExitCare): Cervical Muscle Strain (DC) Prescriptions: Cyclobenzaprine [Cyclobenzaprine HCl] 10 mg PO TID #21 tab Referrals: PCP,NO [Primary Care Provider] - Follow up with primary Forms: [employer] (Azeri), WORK NOTE
--- NOTE | 2017-07-23 08:22 | RAD ---
PROCEDURE: Cervical Spine Radiographs. HISTORY: Pain. COMPARISON: None. FINDINGS: BONES: Alignment maintained. No fracture. Dens Intact. DISC SPACES: Normal. SOFT TISSUES: Normal. No prevertebral soft tissue swelling. OTHER FINDINGS: None. IMPRESSION: Normal cervical spine radiographs
--- NOTE | 2017-07-23 08:26 | RAD ---
PROCEDURE: Radiographs of the Left Shoulder HISTORY: pain COMPARISON: No prior. FINDINGS: BONES: Normal. No fracture. JOINTS: Normal. Glenohumeral and acromioclavicular joints preserved. No osteoarthritis. SOFT TISSUES: Normal. OTHER FINDINGS: None. IMPRESSION: Normal radiographs of the left shoulder.
[2017-07-23 11:46] VITALS: BP 135/67; PULSE 84; RESP 18; TEMP 98.4; O2SAT 99
== END 2017-07-22 23:47 | disposition home or self-care (01) ==
LOC: ED 20:46
DX: S13.4XXA Sprain of ligaments of cervical spine, initial encounter (principal); X58.XXXA Exposure to other specified factors, initial encounter
CPT/HCPCS: 72050; 73030; 96372; 99283; J1885

== ENCOUNTER 2018-01-08 09:22 | Emergency (ER) | payer MEDICAID, OTHER ==
[2018-01-08 09:23] VITALS: BMI 32.8
[2018-01-08 09:34] VITALS: RESP 16; TEMP 98.3; O2SAT 100
[2018-01-08 10:12] LABS: URINE APPEARANCE CLEAR (CLEAR); URINE BILIRUBIN NEGATIVE (NEGATIVE); URINE BLOOD MODERATE (NEGATIVE); URINE COLOR YELLOW (YELLOW); URINE GLUCOSE (UA) NEGATIVE (NEGATIVE); URINE LEUKOCYTE ESTERASE MODERATE Leu/uL (NEGATIVE); URINE PROTEIN TRACE mg/dL (<30 mg/dL); URINE UROBILINOGEN 0.2 E.U./dL (<1 E.U./dL)
[2018-01-08 10:14] LABS: HCG,QUALITATIVE URINE NEGATIVE (NEGATIVE)
[2018-01-08 10:16] LABS: URINE BACTERIA MANY (NEG); URINE RBC 15 - 20 /hpf (0-2); URINE WBC 20 - 25 /hpf (0-6)
[2018-01-08 10:17] LABS: URINE AMORPHOUS SEDIMENT FEW
--- NOTE | 2018-01-08 10:17 | ED PDOC ---
Arrival/HPI - General Chief Complaint: Female Genitourinary Time Seen by Provider: 01/08/18 09:37 Historian: Patient - History of Present Illness Narrative History of Present Illness (Text): 01/08/18 37 yo female w/o significant PMHx come inf or evaluation of vaginal irritation, white discharge gradually developed for past 2 weeks associated with pain on urination for past 3-4 days. Pt denies fever, chills, recent abx use or sickness , denies sore throat, cough, abd. pain, N/V/D, back pain, hematuria, denies recent [employer] procedure/surgery. Ambulate to Ed for evaluation, not in any apparent distress. Past Medical History - Provider Review Nursing Documentation Reviewed: Yes - Travel History Have you recently traveled outside [place] w/in the past 3 mons?: No - Past History Past History: No Previous - Infectious Disease Hx of Infectious Diseases: None - Tetanus Immunization Tetanus Immunization: Unknown - Past Medical History Past Medical History: No Previous - Cardiac Hx Cardiac Disorders: No - Pulmonary Hx Respiratory Disorders: No - Neurological Hx Neurological Disorder: No - HEENT Hx HEENT Disorder: No - Renal Hx Renal Disorder: No - Endocrine/Metabolic Hx Endocrine Disorders: No - Hematological/Oncological Hx Blood Disorders: No - Integumentary Hx Dermatological Disorder: No - Musculoskeletal/Rheumatological Hx Musculoskeletal Disorders: No - Gastrointestinal Hx Gastrointestinal Disorders: No - Genitourinary/Gynecological Hx Genitourinary Disorders: No - Psychiatric Hx Psychophysiologic Disorder: No Hx Substance Use: No - Past Surgical History Past Surgical History: No Previous - Anesthesia Hx Anesthesia: No Hx Anesthesia Reactions: No Hx Malignant Hyperthermia: No Family/Social History - Physician Review Nursing Documentation Reviewed: Yes Family/Social History: No Known Family HX Smoking Status: Never Smoked Hx Alcohol Use: No Hx Substance Use: No Allergies/Home Meds Allergies/Adverse Reactions: Allergies No Known Allergies Allergy (Verified 01/08/18 09:34) Review of Systems - Review of Systems Constitutional: Normal Eyes: Normal ENT: Normal Respiratory: Normal Cardiovascular: Normal Gastrointestinal: Normal. absent: Abdominal Pain, Nausea, Vomiting Genitourinary Female: Dysuria, Vaginal Discharge. absent: Hematuria, Vaginal Bleeding Musculoskeletal: Normal Skin: Normal. absent: Rash Neurological: Normal Endocrine: Normal Hemo/Lymphatic: Normal Psychiatric: Normal Physical Exam Vital Signs Temp Pulse Resp BP Pulse Ox 01/08/18 09:32 98.3 F 81 16 113/79 100 Temperature: Afebrile Blood Pressure: Normal Pulse: Regular Respiratory Rate: Normal Appearance: Positive for: Well-Appearing, Non-Toxic, Comfortable Pain Distress: Mild Mental Status: Positive for: Alert and Oriented X 3 - Systems Exam Conjunctiva: Present: Normal Mouth: Present: Moist Mucous Membranes. No: Drooling Pharnyx: No: ERYTHEMA Neck: Present: Trachea Midline Respiratory/Chest: Present: Clear to Auscultation, Good Air Exchange. No: Respiratory Distress, Accessory Muscle Use Cardiovascular: Present: Regular Rate and Rhythm, Normal S1, S2. No: Murmurs Abdomen: No: Tenderness, Distention, Peritoneal Signs, Rebound, Guarding Genitourinary/Pelvic Exam: Present: Vaginal Discharge (scant white discharge), Other (diffuse vulvar erythema, mild edema and tenderness.). No: Vaginal Bleeding, Vaginal Lesions, Cervical Motion Tendernes Back: No: CVA Tenderness Upper Extremity: Present: Normal Inspection. No: Cyanosis, Edema Lower Extremity: No: Edema, CALF TENDERNESS Neurological: Present: GCS=15, Speech Normal Skin: Present: Warm, Dry, Normal Color. No: Rashes Psychiatric: Present: Alert, Oriented x 3 Medical Decision Making ED Course and Treatment: 01/08/18 10:57 On re-eval, pt is afebrile, hemodynamicaly stable. Non-toxic, tolerate Po well in ED. ENT: No acute findings neck: Supple, (-) meningeal sign Lungs: CTA B/L, BS equal B/L Abd: benign, (-) guarding, (-) rebound Back: (-) CVA tenderness UA (+) WBC, RBC Pt was tx empirically with Macrobid/Diflucan Ucx- pending Pt has clinical findings c/w vulvovagintis, UTI. Pt advised on course of ds. ref. 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 return to ED if any worsening or new changes. - Lab Interpretations Lab Results: Lab Results 01/08/18 10:05: Urine Color Yellow, Urine Appearance Clear, Urine pH 6.0, Ur Specific [place] 1.025, Urine Protein Trace H, Urine Glucose (UA) Negative, Urine Ketones Negative, Urine Blood Moderate H, Urine Nitrate Negative, Urine Bilirubin Negative, Urine Urobilinogen 0.2, Ur Leukocyte Esterase Moderate H, Urine RBC 15 - 20, Urine WBC 20 - 25, Ur Epithelial Cells 6 - 8, Amorphous Sediment Few, Urine Bacteria Many, Urine Other Uyeast, Urine HCG, Qual Negative Disposition/Present on Arrival - Present on Arrival Any Indicators Present on Arrival: No History of DVT/PE: No History of Uncontrolled Diabetes: No Urinary Catheter: No History of Decub. Ulcer: No History Surgical Site Infection Following: None - Disposition Have Diagnosis and Disposition been Completed?: Yes Diagnosis: Vulvovaginal candidiasis, UTI (urinary tract infection) Disposition: HOME/ ROUTINE Disposition Time: 10:16 Patient Plan: Discharge Patient Problems: Current Active Problems Problem Status Onset UTI (urinary tract infection) Acute Vulvovaginal candidiasis Acute Condition: STABLE Discharge Instructions (ExitCare): Vulvovaginal Yeast Infection, Urinary Tract Infections in Adults Additional Instructions: Encourage fluids Take medication as prescribed Follow up with PMD, [employer] in 2-3 days for re-evaluation. return to ED if any worsening or new changes. Prescriptions: Miconazole/Cleanser 17 On Wipe [Monistat 7 Combination Pack] 1 each VG HS #1 kit Nitrofurantoin Macrocrystals [Macrobid] 1 cap PO BID #14 cap Phenazopyridine [Phenazopyridine HCl] 200 mg PO Q12 #6 tab Referrals: Judie Harrison MD [Medical Doctor] - [facility] - Follow up with primary Forms: [employer] (Syriac)
[2018-01-08 11:22] VITALS: BP 120/73; PULSE 79
== END 2018-01-08 11:19 | disposition home or self-care (01) ==
LOC: ED 09:22
DX: B37.3 Candidiasis of vulva and vagina (principal); N39.0 Urinary tract infection, site not specified

== ENCOUNTER 2018-01-28 08:13 | Emergency (ER) | payer MEDICAID ==
[2018-01-28 08:36] VITALS: RESP 18; TEMP 98.1; O2SAT 99; BMI 29.4
--- NOTE | 2018-01-28 10:06 | ED PDOC ---
Arrival/HPI - General Chief Complaint: Back Pain Time Seen by Provider: 01/28/18 09:34 Historian: Patient - History of Present Illness Narrative History of Present Illness (Text): 01/28/18 10:20 37-year-old female presents today with dysuria and urinary frequency that has been ongoing for 2 weeks. Patient also complaining of generalized body aches. No medications have been taken for pain at home. Patient denies fevers or chills. She denies chest pain or shortness of breath. She denies nausea vomiting diarrhea or constipation. She denies any abdominal pain. Patient denies dizziness or weakness. Patient states she was treated for urinary tract infection about 2 weeks ago but the symptoms have not resolved. Patient states she has pain to the upper back bilaterally. She states she has some low back pain as well as pain in both arms. She denies numbness weakness or tingling in the extremities. No other complaints Time/Duration: > week (2 weeks) Symptom Onset: Gradual Symptom Course: Unchanged Quality: Aching Severity Level: Mild Past Medical History - Provider Review Nursing Documentation Reviewed: Yes - Travel History Have you recently traveled outside [place] w/in the past 3 mons?: No - Past History Past History: No Previous - Infectious Disease Hx of Infectious Diseases: None - Tetanus Immunization Tetanus Immunization: Unknown - Past Medical History Past Medical History: No Previous - Cardiac Hx Cardiac Disorders: No - Pulmonary Hx Respiratory Disorders: No - Neurological Hx Neurological Disorder: No - HEENT Hx HEENT Disorder: No - Renal Hx Renal Disorder: No - Endocrine/Metabolic Hx Endocrine Disorders: No - Hematological/Oncological Hx Blood Disorders: No - Integumentary Hx Dermatological Disorder: No - Musculoskeletal/Rheumatological Hx Musculoskeletal Disorders: No - Gastrointestinal Hx Gastrointestinal Disorders: No - Genitourinary/Gynecological Hx Genitourinary Disorders: No - Psychiatric Hx Psychophysiologic Disorder: No Hx Substance Use: No - Past Surgical History Past Surgical History: No Previous - Anesthesia Hx Anesthesia: No Hx Anesthesia Reactions: No Hx Malignant Hyperthermia: No Family/Social History - Physician Review Nursing Documentation Reviewed: Yes Family/Social History: Unknown Family HX Smoking Status: Never Smoked Hx Alcohol Use: No Hx Substance Use: No Allergies/Home Meds Allergies/Adverse Reactions: Allergies No Known Allergies Allergy (Verified 01/08/18 09:34) Review of Systems - Review of Systems Constitutional: absent: Fatigue, Fevers Respiratory: absent: SOB, Cough Cardiovascular: absent: Chest Pain, Palpitations Gastrointestinal: absent: Abdominal Pain, Nausea, Vomiting Genitourinary Female: Dysuria, Frequency Musculoskeletal: Back Pain. absent: Arthralgias, Neck Pain Skin: absent: Rash, Pruritis Neurological: absent: Headache, Dizziness Psychiatric: absent: Anxiety, Depression Physical Exam Vital Signs Reviewed: Yes Vital Signs Temp Pulse Resp BP Pulse Ox 01/28/18 08:35 98.1 F 73 18 115/77 99 Temperature: Afebrile Blood Pressure: Normal Pulse: Regular Respiratory Rate: Normal Appearance: Positive for: Well-Appearing, Non-Toxic, Comfortable Pain Distress: None Mental Status: Positive for: Alert and Oriented X 3 - Systems Exam Head: Present: Atraumatic Mouth: Present: Moist Mucous Membranes Neck: Present: Normal Range of Motion, Other (+ ttp over trapezius bilaterally.). No: MIDLINE TENDERNESS Respiratory/Chest: Present: Clear to Auscultation, Good Air Exchange. No: Respiratory Distress, Accessory Muscle Use Cardiovascular: Present: Regular Rate and Rhythm, Normal S1, S2. No: Murmurs Abdomen: No: Tenderness, Rebound, Guarding Back: Present: Normal Inspection. No: CVA Tenderness, Midline Tenderness, Para spinal Tenderness Upper Extremity: Present: Normal Inspection, Normal ROM Lower Extremity: Present: Normal Inspection, Normal ROM Neurological: Present: GCS=15, Speech Normal Skin: Present: Warm, Dry, Normal Color. No: Rashes Psychiatric: Present: Alert, Oriented x 3 Medical Decision Making ED Course and Treatment: 01/28/18 10:23 Patient is nontoxic well-appearing in no distress with stable vital signs complaining of generalized body aches and urinary symptoms for the past 2 weeks. CBC wbc; 3.8 unchanged from previous CMP: wnl Urinalysis: Positive trace leukocytes Urine culture pending Patient given Toradol for pain. Patient reassessment: pt is non toxic well appearing; no distress. stable vitals. Discussed all results in depth with the patient advised follow-up with primary care physician within the next 2 days. Advised taking antibiotics as prescribed and return immediately if symptoms worsen persist or if new concerning symptoms develop Patient verbalizes understanding of discharge instructions and need for immediate followup. all aspects of this case were discussed the attending of record. Impression: Urinary tract infection, body aches Motrin every 6 hours as needed for pain. Keflex one capsule twice daily 7 days Follow-up with primary care physician within the next 2 days Increase fluids Return immediately if symptoms worsen persist or if new concerning symptoms develop - Medication Orders Current Medication Orders: Discontinued Medications Ketorolac Tromethamine (Toradol) 30 mg IVP STAT STA Stop: 01/28/18 10:04 Disposition/Present on Arrival - Present on Arrival Any Indicators Present on Arrival: No History of DVT/PE: No History of Uncontrolled Diabetes: No Urinary Catheter: No History of Decub. Ulcer: No History Surgical Site Infection Following: None - Disposition Have Diagnosis and Disposition been Completed?: Yes Diagnosis: Urinary tract infection Disposition: HOME/ ROUTINE Disposition Time: 10:00 Patient Plan: Discharge Patient Problems: Current Active Problems Problem Status Onset Urinary tract infection Acute Condition: GOOD Discharge Instructions (ExitCare): Urinary Tract Infections in Adults Additional Instructions: Motrin every 6 hours as needed for pain. Keflex one capsule twice daily 7 days Follow-up with primary care physician within the next 2 days Increase fluids Return immediately if symptoms worsen persist or if new concerning symptoms develop Prescriptions: Cephalexin [Keflex] 500 mg PO BID #14 capsule Ibuprofen [Motrin] 600 mg PO Q6H PRN #20 tab PRN Reason: pain/fever reduction Referrals: Judie Harrison MD [Medical Doctor] - Follow up with primary [facility] [Outside] - Follow up with primary Forms: [facility] ([place]ian), WORK NOTE
[2018-01-28 10:09] LABS: PH,URINE 7.5 (4.7-8.0); URINE BILIRUBIN NEGATIVE (NEGATIVE); URINE BLOOD TRACE-INTACT (NEGATIVE); URINE GLUCOSE (UA) NEGATIVE (NEGATIVE); URINE LEUKOCYTE ESTERASE TRACE Leu/uL (NEGATIVE); URINE PROTEIN NEGATIVE mg/dL (<30 mg/dL); URINE UROBILINOGEN 0.2 E.U./dL (<1 E.U./dL)
[2018-01-28 10:13] LABS: URINE APPEARANCE CLEAR (CLEAR); URINE COLOR YELLOW (YELLOW)
[2018-01-28 10:14] LABS: BASO # 0.02 K/mm3 (0.0-2.0); BASO % 0.5 % (0.0-3.0); EOS # 0.1 (0.0-0.7); EOS % 3.1 % (1.5-5.0); GRAN # 1.52 (1.4-6.5); GRAN % 39.8 % (50.0-68.0); HEMOGLOBIN 12.1 g/dL (12.0-16.0); LYMPH # 1.9 (1.2-3.4); LYMPH % 49.5 % (22.0-35.0); MEAN CORPUSCULAR HEMOGLOBIN 28.2 pg (25.0-35.0); MEAN CORPUSCULAR HGB CONC 32.8 g/dl (31.0-37.0); MEAN PLATELET VOLUME 10.8 fl (7.0-11.0); MONO # 0.3 (0.1-0.6); MONO % 7.1 % (1.0-6.0); RBC 4.29 10^6/uL (3.5-6.1); RED CELL DISTRIBUTION WIDTH 14.9 % (11.5-14.5); WHITE BLOOD COUNT 3.8 10^3/ul (4.5-11.0)
[2018-01-28 10:20] LABS: ALB/GLOB RATIO 1.2 (1.1-1.8); ALBUMIN 4.3 g/dL (3.0-4.8); ALT/SGPT 28 U/L (7-56); AST/SGOT 21 U/L (14-36); BLOOD UREA NITROGEN 18 mg/dL (7-21); CALCIUM 9.4 mg/dL (8.4-10.5); GFR NON-AFRICAN AMERICAN > 60
[2018-01-28 10:44] LABS: URINE BACTERIA MANY (NEG)
[2018-01-28 11:01] VITALS: BP 111/67; PULSE 74
== END 2018-01-28 10:59 | disposition home or self-care (01) ==
LOC: ED 08:13
DX: N39.0 Urinary tract infection, site not specified (principal)
CPT/HCPCS: 80053; 81001; 85025; 87086; 96374; 99283; J1885

== ENCOUNTER 2018-01-30 12:19 | Emergency (ER) | payer MEDICAID ==
[2018-01-30 12:20] VITALS: BMI 29.4
[2018-01-30 12:31] VITALS: TEMP 98.1
--- NOTE | 2018-01-30 12:49 | ED PDOC ---
Arrival/HPI - General Chief Complaint: Upper Extremity Problem/Injury Time Seen by Provider: 01/30/18 12:23 Historian: Patient - History of Present Illness Narrative History of Present Illness (Text): 01/30/18 12:46 37 year old female, with no significant past medical history, who presents to the ED complaining of worsening left shoulder/upper arm pain and back pain x 2 weeks. Patient states pain also worsens with movement. Patient denies any fever, chills, chest pain, shortness of breath, nausea, vomiting, diarrhea, headache, dizziness, or any other complaints. PMD: None Time/Duration: > week (2 weeks) Symptom Onset: Gradual Symptom Course: Worsening Activities at Onset: Light Context: Home Past Medical History - Provider Review Nursing Documentation Reviewed: Yes - Past History Past History: No Previous - Infectious Disease Hx of Infectious Diseases: None - Tetanus Immunization Tetanus Immunization: Unknown - Reproductive Menopause: No - Past Medical History Past Medical History: No Previous - Cardiac Hx Cardiac Disorders: No - Pulmonary Hx Respiratory Disorders: No - Neurological Hx Neurological Disorder: No - HEENT Hx HEENT Disorder: No - Renal Hx Renal Disorder: No - Endocrine/Metabolic Hx Endocrine Disorders: No - Hematological/Oncological Hx Blood Disorders: No - Integumentary Hx Dermatological Disorder: No - Musculoskeletal/Rheumatological Hx Musculoskeletal Disorders: No - Gastrointestinal Hx Gastrointestinal Disorders: No - Genitourinary/Gynecological Hx Genitourinary Disorders: No - Psychiatric Hx Psychophysiologic Disorder: No Hx Substance Use: No - Past Surgical History Past Surgical History: No Previous - Anesthesia Hx Anesthesia: No Hx Anesthesia Reactions: No Hx Malignant Hyperthermia: No Family/Social History - Physician Review Nursing Documentation Reviewed: Yes Family/Social History: Unknown Family HX Smoking Status: Never Smoked Hx Alcohol Use: No Hx Substance Use: No Allergies/Home Meds Allergies/Adverse Reactions: Allergies No Known Allergies Allergy (Verified 01/08/18 09:34) Review of Systems - Physician Review All systems were reviewed & negative as marked: Yes - Review of Systems Constitutional: Normal Eyes: Normal ENT: Normal Respiratory: Normal. absent: SOB, Cough Cardiovascular: Normal. absent: Chest Pain Gastrointestinal: Normal. absent: Abdominal Pain Genitourinary Female: Normal. absent: Dysuria, Frequency, Hematuria Musculoskeletal: Back Pain, Other (left neck/back/shoulder/upper arm pain) Skin: Normal. absent: Rash Neurological: Normal. absent: Headache, Dizziness Endocrine: Normal Hemo/Lymphatic: Normal Psychiatric: Normal Physical Exam Vital Signs Reviewed: Yes Vital Signs Temp Pulse Resp BP Pulse Ox 01/30/18 12:27 98.1 F 85 16 136/88 99 Temperature: Afebrile Blood Pressure: Normal Pulse: Regular Respiratory Rate: Normal Appearance: Positive for: Well-Appearing, Non-Toxic, Comfortable Pain Distress: None Mental Status: Positive for: Alert and Oriented X 3 - Systems Exam Head: Present: Atraumatic, Normocephalic Pupils: Present: PERRL Extroacular Muscles: Present: EOMI Conjunctiva: Present: Normal Mouth: Present: Moist Mucous Membranes Neck: Present: Normal Range of Motion, Other (lateral left neck tenderness; greater than right) Respiratory/Chest: Present: Clear to Auscultation, Good Air Exchange. No: Respiratory Distress, Accessory Muscle Use Cardiovascular: Present: Regular Rate and Rhythm, Normal S1, S2. No: Murmurs Abdomen: No: Tenderness, Distention, Peritoneal Signs Back: Present: Normal Inspection Upper Extremity: Present: Normal ROM, Tenderness (left upper trapezius tenderness; diffuse anterior left shoulder tenderness). No: Cyanosis, Edema Lower Extremity: Present: Normal Inspection. No: Edema Neurological: Present: GCS=15, CN II-XII Intact, Speech Normal Skin: Present: Warm, Dry, Normal Color. No: Rashes Psychiatric: Present: Alert, Oriented x 3, Normal Insight, Normal Concentration Medical Decision Making ED Course and Treatment: 01/30/18 12:51 Impression: 37 year old female presents to the Emergency department complaining of left shoulder/upper arm and back pain. Plan: -- Ibuprofen -- Reassess and disposition Progress Notes: 01/30/18 13:15 Patient was initially was interviewed in sao to[place] because she denied an motor vehicle parts interpreter because she says she speaks sao to[place] well. Then I offered again and she agreed to an motor vehicle parts interpreter. VideoIndemand used with motor vehicle parts interpreter [id number]. Patient explained in detail her history and exam consistent with musculoloskeletal neck/back/shoulder pain. 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 She also has had this before in the past. She was given Motrin and Flexeril Rx for initial care. Advised to take for 1 week as needed. She was also explained the benefit of a Medrol dose back and she says she will take it if first line Motrin and Flexeril doesn't work. She will return to the ED if symptoms worse. She will f/u with Dr. Harrison in the clinic. - Scribe Statement The provider has reviewed the documentation as recorded by the Raynaibe Marla Hidalgo All medical record entries made by the Scribe were at my direction and personally dictated by me. I have reviewed the chart and agree that the record accurately reflects my personal performance of the history, physical exam, medical decision making, and the department course for this patient. I have also personally directed, reviewed, and agree with the discharge instructions and disposition. Disposition/Present on Arrival - Present on Arrival Any Indicators Present on Arrival: No History of DVT/PE: No History of Uncontrolled Diabetes: No Urinary Catheter: No History of Decub. Ulcer: No History Surgical Site Infection Following: None - Disposition Have Diagnosis and Disposition been Completed?: Yes Diagnosis: Musculoskeletal neck pain, Neuropathy Disposition: HOME/ ROUTINE Disposition Time: 13:19 Patient Plan: Discharge Patient Problems: Current Active Problems Problem Status Onset Musculoskeletal neck pain Acute Neuropathy Acute Condition: GOOD Discharge Instructions (ExitCare): Peripheral Neuropathy, Generalized Neck Pain Additional Instructions: MINA COLLINS, thank you for letting us take care of you today. Your provider was Philip Aly DO and you were treated for Neck, Back and Arm Musculoskeletal Pain, Neuropathy. The emergency medical care you received today was directed at your acute symptoms. If you were prescribed any medication, please fill it and take as directed. It may take several days for your symptoms to resolve. Return to the Emergency Department if your symptoms worsen, do not improve, or if you have any other problems. Please contact your doctor or call one of the physicians/clinics you have been referred to that are listed on the Patient Visit Information form that is included in your discharge packet. Bring any paperwork you were given at discharge with you along with any medications you are taking to your follow up visit. Our treatment cannot replace ongoing medical care by a primary care provider outside of the emergency department. Thank you for allowing the [facility] team to be part of your care today. If you had an X-Ray or CT scan: A Radiologist will review the ED reading if any change in treatment is needed we will contact you. If you had a blood, urine, or wound culture: It will take several days for the results, if any change in treatment is needed we will contact you. If you had an STI test: It will take 48 hours for the results. Please call after 1 week if you have not heard back. Prescriptions: Cyclobenzaprine [Flexeril] 5 mg PO TID PRN #20 tab PRN Reason: Muscle Spasm Ibuprofen [Motrin] 600 mg PO Q6 PRN #30 tab PRN Reason: Pain, Moderate (4-7) Methylprednisolone [Medrol Dose Pack (21 tabs)] 4 mg PO DAILY #21 mg Referrals: [facility] [Outside] - Follow up with primary Judie Harrison MD [Medical Doctor] - Follow up with primary Forms: [facility] (Syriac), WORK NOTE
[2018-01-30 13:45] VITALS: BP 137/71; PULSE 82; RESP 18; O2SAT 100
== END 2018-01-30 13:20 | disposition home or self-care (01) ==
LOC: ED 12:19
DX: G62.9 Polyneuropathy, unspecified (principal); M54.2 Cervicalgia

== ENCOUNTER 2018-05-22 21:06 | Emergency (ER) | payer MEDICAID ==
[2018-05-22 21:07] VITALS: BMI 29.4
[2018-05-22 21:26] VITALS: BP 120/80; PULSE 80; RESP 19; TEMP 98; O2SAT 98
--- NOTE | 2018-05-22 22:43 | ED PDOC ---
Arrival/HPI - General Historian: Patient - History of Present Illness Narrative History of Present Illness (Text): 05/22/18 22:00 37 year old female, with no significant past medical history, presents to the emergency department complaining of pain to her upper back, neck, and bilateral shoulder with body aches and chills for the past 3 weeks. Patient has already seen her PMD twice for her symptoms and has done blood work which was normal. She has completed antibiotics with no improvement thinking it was an infection and now was prescribed with Gabapentin and Zanaflex without any improvement. Patient denies any recent travel, sick contact, or IV drug use. Patient also adm its to a dry cough for 2 weeks, but denies any fever, chest pain, shortness of breath, nausea, vomiting, diarrhea, urinary symptoms, rash, headache, dizziness, or any other complaints. PMD: [facility] Time/Duration: Other (3 weeks) Symptom Onset: Gradual Symptom Course: Unchanged Activities at Onset: Light Context: Home <Josie Sanchez PA-C - Last Filed: 05/23/18 00:15> <Toñito Peacock - Last Filed: 05/23/18 19:43> - General Chief Complaint: Upper Extremity Problem/Injury Time Seen by Provider: 05/22/18 21:13 Past Medical History - Provider Review Nursing Documentation Reviewed: Yes - Travel History Have you recently traveled outside [place] w/in the past 3 mons?: No - Past History Past History: No Previous - Infectious Disease Hx of Infectious Diseases: None - Tetanus Immunization Tetanus Immunization: Unknown - Reproductive Menopause: No - Past Medical History Past Medical History: No Previous - Cardiac Hx Cardiac Disorders: No - Pulmonary Hx Respiratory Disorders: No - Neurological Hx Neurological Disorder: No - HEENT Hx HEENT Disorder: No - Renal Hx Renal Disorder: No - Endocrine/Metabolic Hx Endocrine Disorders: No - Hematological/Oncological Hx Blood Disorders: No - Integumentary Hx Dermatological Disorder: No - Musculoskeletal/Rheumatological Hx Musculoskeletal Disorders: No - Gastrointestinal Hx Gastrointestinal Disorders: No - Genitourinary/Gynecological Hx Genitourinary Disorders: No - Psychiatric Hx Psychophysiologic Disorder: No Hx Substance Use: No - Past Surgical History Past Surgical History: No Previous - Anesthesia Hx Anesthesia: No Hx Anesthesia Reactions: No Hx Malignant Hyperthermia: No <Josie Sanchez PA-C - Last Filed: 05/23/18 00:15> Family/Social History - Physician Review Nursing Documentation Reviewed: Yes Family/Social History: No Known Family HX Smoking Status: Never Smoked Hx Alcohol Use: No Hx Substance Use: No <Josie Sanchez PA-C - Last Filed: 05/23/18 00:15> Allergies/Home Meds <Josie Sanchez PA-C - Last Filed: 05/23/18 00:15> <Toñito Peacock - Last Filed: 05/23/18 19:43> Allergies/Adverse Reactions: Allergies No Known Allergies Allergy (Verified 01/08/18 09:34) Review of Systems - Physician Review All systems were reviewed & negative as marked: Yes - Review of Systems Constitutional: Other (Chills). absent: Fevers Respiratory: Cough. absent: SOB Cardiovascular: absent: Chest Pain Gastrointestinal: absent: Diarrhea, Nausea, Vomiting Genitourinary Female: absent: Dysuria, Frequency, Hematuria Musculoskeletal: Back Pain, Neck Pain, Other (shoulder pain) Skin: absent: Rash Neurological: absent: Headache, Dizziness <Josie Sanchez PA-C - Last Filed: 05/23/18 00:15> Physical Exam Vital Signs Reviewed: Yes Vital Signs Temp Pulse Resp BP Pulse Ox 05/22/18 21:07 98 F 80 19 120/80 98 Temperature: Afebrile Blood Pressure: Normal Pulse: Regular Respiratory Rate: Normal Appearance: Positive for: Well-Appearing, Non-Toxic, Comfortable Pain Distress: None Mental Status: Positive for: Alert and Oriented X 3 - Systems Exam Head: Present: Atraumatic, Normocephalic Pupils: Present: PERRL Extroacular Muscles: Present: EOMI Conjunctiva: Present: Normal Mouth: Present: Moist Mucous Membranes Neck: Present: Normal Range of Motion Respiratory/Chest: Present: Clear to Auscultation, Good Air Exchange. No: Respiratory Distress, Accessory Muscle Use Cardiovascular: Present: Regular Rate and Rhythm, Normal S1, S2. No: Murmurs Abdomen: No: Tenderness, Distention, Peritoneal Signs Back: Present: Other (Paravertebral tenderness to upper back) Upper Extremity: Present: Normal Inspection. No: Cyanosis, Edema Lower Extremity: Present: Normal Inspection. No: Edema Neurological: Present: GCS=15, CN II-XII Intact, Speech Normal Skin: Present: Warm, Dry, Normal Color. No: Rashes Psychiatric: Present: Alert, Oriented x 3, Normal Insight, Normal Concentration <Josie Sanchez PA-C - Last Filed: 05/23/18 00:15> Vital Signs Temp Pulse Resp BP Pulse Ox 05/22/18 21:07 98 F 80 19 120/80 98 <Toñito Peacock - Last Filed: 05/23/18 19:43> Medical Decision Making ED Course and Treatment: 05/22/18 22:00 Impression: 37 year old female presents complaining of pain to her upper back, neck, and bilateral shoulder with body aches and chills for the past 3 weeks. Patient also admits to dry cough for the past 2 weeks. Plan: -- Labs -- Chest X-ray -- POC Urine Test -- Influenza A B -- Reassess and disposition Prior Visits: Notes and results from previous visits were reviewed. Progress Notes: Labs reviewed and wnl. Rapid flu (-) Uhcg (-) CXR : patient refusing States that she wants to leave and can no longer stay in the ER any longer, is refusing CXR, states that she has no time for it. Patient refuses CXR, further care, evaluation or treatment in the ER. Patient informed of the reasons for the following and planned treatment, which patient understands, however still refuses. Patient informed of the risk and benefits of treatment. Informed that the risk could include worsening of current conditions, undiagnosed conditions, disability or even . Patient understands the following risk and the benefits of treatment. Patient has the capacity to make decisions and still refuses treatment by RN, PA and ER MD. Patient encouraged to return to the ER at any time and to follow up with pmd. - Lab Interpretations I have reviewed the lab results: Yes - RAD Interpretation Radiology Orders: 05/22/18 22:03 CHEST TWO VIEWS (PA/LAT) [RAD] Stat De Icer Kit Assembler: ED Physician <Josie Sanchez PA-C - Last Filed: 05/23/18 00:15> - Lab Interpretations Lab Results: Total Bilirubin 0.2 mg/dL (0.2-1.3) 05/22/18 22:17 AST 22 U/L (14-36) 05/22/18 22:17 ALT 28 U/L (7-56) 05/22/18 22:17 Alkaline Phosphatase 45 U/L (38-126) 05/22/18 22:17 Total Protein 8.2 g/dL (5.8-8.3) 05/22/18 22:17 Albumin 4.6 g/dL (3.0-4.8) 05/22/18 22:17 Globulin 3.7 gm/dL 05/22/18 22:17 Albumin/Globulin Ratio 1.2 (1.1-1.8) 05/22/18 22:17 - RAD Interpretation Radiology Orders: 05/22/18 22:03 CHEST TWO VIEWS (PA/LAT) [RAD] Stat <Toñito Peacock - Last Filed: 05/23/18 19:43> - PA / NAIL TECH / Resident Statement SYMONE has reviewed & agrees with the documentation as recorded. - Scribe Statement The provider has reviewed the documentation as recorded by the Tr Pimentel Provider Scribe Attestation: All medical record entries made by the Raynaibshannen were at my direction and personally dictated by me. I have reviewed the chart and agree that the record accurately reflects my personal performance of the history, physical exam, medical decision making, and the department course for this patient. I have also personally directed, reviewed, and agree with the discharge instructions and disposition. <Josie Sanchez PA-C - Last Filed: 05/23/18 00:15> - PA / NAIL TECH / Resident Statement SYMONE has reviewed & agrees with the documentation as recorded. <Toñito Peacock - Last Filed: 05/23/18 19:43> Disposition/Present on Arrival - Present on Arrival Any Indicators Present on Arrival: No History of DVT/PE: No History of Uncontrolled Diabetes: No Urinary Catheter: No History of Decub. Ulcer: No History Surgical Site Infection Following: None - Disposition Have Diagnosis and Disposition been Completed?: Yes Disposition Time: 23:45 Patient Plan: Other (Patient wishes to leave AMA, refusing CXR) <Josie Sanchez PA-C - Last Filed: 05/23/18 00:15> <Toñito Peacock - Last Filed: 05/23/18 19:43> - Disposition Diagnosis: Myalgia, Back pain, Cough Disposition: AGAINST MEDICAL ADVICE Condition: UNKNOWN Discharge Instructions (ExitCare): Upper Back Pain (DC), Muscle and Bone Pain (DC), Cough, Adult (DC), Leaving Against Medical Advice Additional Instructions: Thank you for letting us take care of you today. You were treated for back pain, bodyaches, cough. You are choosing to leave AMA. The emergency medical care you received today was directed at your acute symptoms. Return to the Emergency Department if your symptoms worsen, do not improve, or if you have any other problems. Please contact your doctor in 2 days for re-evaluation and follow up. Bring any paperwork you were given at discharge with you along with any medications you are taking to your follow up visit. Our treatment cannot replace ongoing medical care by a primary care provider (PCP) outside of the emergency department. Thank you for allowing the [facility] team to be part of your care today. Referrals: PCP,NO [Primary Care Provider] - Follow up with primary Forms: [employer] (Qatari)
[2018-05-22 22:44] LABS: BASO # 0.02 K/mm3 (0.0-2.0); BASO % 0.4 % (0.0-3.0); EOS # 0.1 (0.0-0.7); EOS % 1.7 % (1.5-5.0); HEMOGLOBIN 12.3 g/dL (12.0-16.0); LYMPH # 2.3 (1.2-3.4); LYMPH % 44.7 % (22.0-35.0); MEAN CELL VOLUME 87.9 fl (80.0-105.0); MEAN CORPUSCULAR HEMOGLOBIN 28.5 pg (25.0-35.0); MEAN CORPUSCULAR HGB CONC 32.5 g/dl (31.0-37.0); MONO # 0.3 (0.1-0.6); MONO % 6.2 % (1.0-6.0); RBC 4.31 10^6/uL (3.5-6.1); RED CELL DISTRIBUTION WIDTH 14.5 % (11.5-14.5); WHITE BLOOD COUNT 5.2 10^3/uL (4.5-11.0)
[2018-05-22 22:56] LABS: ALB/GLOB RATIO 1.2 (1.1-1.8); ALBUMIN 4.6 g/dL (3.0-4.8); ALT/SGPT 28 U/L (7-56); AST/SGOT 22 U/L (14-36); BLOOD UREA NITROGEN 19 mg/dL (7-21); CALCIUM 9.5 mg/dL (8.4-10.5); GFR NON-AFRICAN AMERICAN > 60
== END 2018-05-23 | disposition left against medical advice (07) ==
LOC: ED 21:06
DX: M79.10 Myalgia, unspecified site (principal); R05 Cough; M54.6 Pain in thoracic spine

== ENCOUNTER 2018-06-18 15:13 | Outpatient (CLI) | payer MEDICAID | END 2018-06-18 15:14 | disposition home or self-care (01) | LOC: RAD 15:13 ==

== ENCOUNTER 2018-07-23 16:15 | Outpatient (CLI) | payer MEDICAID | END 2018-07-23 16:16 | disposition home or self-care (01) | LOC: RAD 16:15 ==

== ENCOUNTER 2018-08-09 22:01 | Emergency (ER) | payer MEDICAID ==
[2018-08-09 22:02] VITALS: BMI 29.4
[2018-08-09 22:22] VITALS: BP 121/86; PULSE 94; RESP 18; TEMP 98.7; O2SAT 97
[2018-08-09] MEDS ORDERED: Sodium Chloride 0.9% 1,000 ML IV STA (22:53)
[2018-08-09 22:55] LABS: BASO # 0.02 K/mm3 (0.0-2.0); BASO % 0.4 % (0.0-3.0); EOS % 0.4 % (1.5-5.0); HEMOGLOBIN 12.3 g/dL (12.0-16.0); LYMPH # 1.2 (1.2-3.4); LYMPH % 21.7 % (22.0-35.0); MEAN CORPUSCULAR HEMOGLOBIN 28.6 pg (25.0-35.0); MEAN CORPUSCULAR HGB CONC 33.2 g/dl (31.0-37.0); MONO # 0.2 (0.1-0.6); MONO % 3.7 % (1.0-6.0); RBC 4.3 10^6/uL (3.5-6.1); RED CELL DISTRIBUTION WIDTH 14.5 % (11.5-14.5); WHITE BLOOD COUNT 5.4 10^3/uL (4.5-11.0)
[2018-08-09 22:56] LABS: URINE APPEARANCE SLIGHT-CLOUDY (CLEAR); URINE BILIRUBIN NEGATIVE (NEGATIVE); URINE BLOOD LARGE (NEGATIVE); URINE COLOR LIGHT RED (YELLOW); URINE GLUCOSE (UA) NEGATIVE (NEGATIVE); URINE LEUKOCYTE ESTERASE SMALL Leu/uL (NEGATIVE); URINE PROTEIN TRACE mg/dL (<30 mg/dL); URINE UROBILINOGEN 0.2 E.U./dL (<1 E.U./dL)
--- NOTE | 2018-08-09 22:56 | ED PDOC ---
Arrival/HPI - General Chief Complaint: Abdominal Pain Time Seen by Provider: 08/09/18 22:02 Historian: Patient - History of Present Illness Narrative History of Present Illness (Text): 37 y/o female with no significant PMH presents to the ED c/o abdominal pain x 1 day. Pain is generalized, worst periumbilically, described as sharp and burning. Associated nausea, dysuria, and urinary frequency. She believes the pain may be caused by some bad chicken she ate yesterday for dinner. Denies fever, chills, back pain, chest pain, SOB, sinus congestion, cough, diarrhea, vomiting, or any other associated symptoms. Past Medical History - Provider Review Nursing Documentation Reviewed: Yes - Past History Past History: No Previous - Infectious Disease Hx of Infectious Diseases: None - Tetanus Immunization Tetanus Immunization: Unknown - Past Medical History Past Medical History: No Previous - Cardiac Hx Cardiac Disorders: No - Pulmonary Hx Respiratory Disorders: No - Neurological Hx Neurological Disorder: No - HEENT Hx HEENT Disorder: No - Renal Hx Renal Disorder: No - Endocrine/Metabolic Hx Endocrine Disorders: No - Hematological/Oncological Hx Blood Disorders: No - Integumentary Hx Dermatological Disorder: No - Musculoskeletal/Rheumatological Hx Musculoskeletal Disorders: No - Gastrointestinal Hx Gastrointestinal Disorders: No - Genitourinary/Gynecological Hx Genitourinary Disorders: No - Psychiatric Hx Psychophysiologic Disorder: No Hx Substance Use: No - Past Surgical History Past Surgical History: No Previous - Anesthesia Hx Anesthesia: No Hx Anesthesia Reactions: No Hx Malignant Hyperthermia: No Family/Social History - Physician Review Nursing Documentation Reviewed: Yes Family/Social History: No Known Family HX Smoking Status: Never Smoked Hx Alcohol Use: No Hx Substance Use: No Allergies/Home Meds Allergies/Adverse Reactions: Allergies No Known Allergies Allergy (Verified 08/09/18 22:22) Review of Systems - Review of Systems Constitutional: Normal. absent: Fatigue, Fevers Eyes: Normal. absent: Vision Changes ENT: Normal. absent: Sore Throat, Sinus Congestion Respiratory: Normal. absent: SOB, Cough Cardiovascular: Normal. absent: Chest Pain, Palpitations Gastrointestinal: Abdominal Pain, Nausea, Appetite Changes. absent: Stool Changes, Constipation, Diarrhea, Vomiting Genitourinary Female: Dysuria, Frequency. absent: Vaginal Bleeding, Vaginal Discharge Musculoskeletal: Normal. absent: Arthralgias, Back Pain, Neck Pain Skin: Normal. absent: Rash Neurological: Normal. absent: Headache, Dizziness Physical Exam Vital Signs Reviewed: Yes Vital Signs Temp Pulse Resp BP Pulse Ox 08/09/18 22:19 98.7 F 94 H 18 121/86 97 Temperature: Afebrile Blood Pressure: Normal Pulse: Regular Respiratory Rate: Normal Appearance: Positive for: Well-Appearing, Non-Toxic, Comfortable Pain Distress: None Mental Status: Positive for: Alert and Oriented X 3 - Systems Exam Head: Present: Atraumatic, Normocephalic Pupils: Present: PERRL Extroacular Muscles: Present: EOMI Conjunctiva: Present: Normal Mouth: Present: Moist Mucous Membranes Neck: Present: Normal Range of Motion. No: Meningeal Signs Respiratory/Chest: Present: Clear to Auscultation, Good Air Exchange. No: Respiratory Distress, Accessory Muscle Use Cardiovascular: Present: Regular Rate and Rhythm, Normal S1, S2, Peripheal Pulses Present Abdomen: Present: Tenderness (generalized, worst periumbilically), Normal Bowel Sounds. No: Distention, Peritoneal Signs Back: Present: Normal Inspection. No: CVA Tenderness Upper Extremity: Present: Normal Inspection, Normal ROM, NORMAL PULSES, Neurovascularly Intact, Capillary Refill < 2s. No: Cyanosis, Edema, Temperature Abnormalties Lower Extremity: Present: Normal Inspection, NORMAL PULSES, Normal ROM, Neurovascularly Intact, Capillary Refill < 2 s. No: Edema, Temperature Abnormalties Neurological: Present: GCS=15, CN II-XII Intact, Speech Normal, Motor Func Grossly Intact, Normal Sensory Function, Gait Normal Skin: Present: Warm, Dry, Normal Color. No: Rashes Psychiatric: Present: Alert, Oriented x 3, Normal Insight, Normal Concentration, Normal Affect, Normal Mood Medical Decision Making ED Course and Treatment: Initial Plan: * CBC, CMP * Lipase * Coags * Troponin * UA * POC preg * CT Abd/Pelvis * EKG * IVF * Pepcid * Zofran * Toradol Bloodwork reviewed, unremarkable. UA suspicious for UTI, will treat with keflex secondary to complaints of dysuri a. Patient unwilling to wait for CT scan, asking to leave ED to get home to her children. Advised PMD followup. The patient is choosing to leave against medical advice. I have personally explained to the patient that choosing to do so may result in permanent bodily harm, disability, or . I have discussed at great length that without further evaluation and monitoring there may be unforeseen circumstances and/or deterioration causing permanent bodily harm or as a result of their cho ice. The patient is alert, oriented, and shows the mental capacity to make clear decisions regarding the patients health care at this time. The patient continues to wish to leave against medical advice. In light of the patients decision to leave against medical advice, follow-up has been arranged and the patient is aware of the importance to following up as instructed. The patient has been advised that they should return to the emergency room immediately if they change their mind at any time, or if their condition begins to change or worsen in any way. - Lab Interpretations Lab Results: 08/09/18 22:49 08/09/18 22:49 Lab Results 08/09/18 22:49: Urine Color Light red, Urine Appearance Slight-cloudy, Urine pH 6.0, Ur Specific Shorter 1.010, Urine Protein Trace H, Urine Glucose (UA) Negative, Urine Ketones Negative, Urine Blood Large H, Urine Nitrate Negative, Urine Bilirubin Negative, Urine Urobilinogen 0.2, Ur Leukocyte Esterase Small H, Urine RBC Tntc H, Urine WBC 2 - 5, Ur Epithelial Cells 1 - 3 08/09/18 22:49: Sodium 138, Potassium 4.2, Chloride 104, Carbon Dioxide 25, Anion Gap 14, BUN 20, Creatinine 0.6 L, Est GFR ( Amer) > 60, Est GFR (Non-Af Amer) > 60, Random Glucose 102, Calcium 9.7, Magnesium 2.1, Total Bilirubin 0.3, AST 22, ALT 17, Alkaline Phosphatase 45, Troponin I < 0.01, Total Protein 8.2, Albumin 4.5, Globulin 3.7, Albumin/Globulin Ratio 1.2, Lipase 91 08/09/18 22:49: PT 12.2, INR 1.10, APTT 29.6 08/09/18 22:49: WBC 5.4, RBC 4.30, Hgb 12.3, Hct 37.0, MCV 86.0, MCH 28.6, MCHC 33.2, RDW 14.5, Plt Count 205, MPV 11.0, Neut % (Auto) 73.8 H, Lymph % (Auto) 21.7 L, Glynn % (Auto) 3.7, Eos % (Auto) 0.4 L, Baso % (Auto) 0.4, Lymph # (Auto) 1.2, Glynn # (Auto) 0.2, Eos # (Auto) 0.0, Baso # (Auto) 0.02, Absolute Neuts (auto) 3.99 I have reviewed the lab results: Yes - Medication Orders Current Medication Orders: Famotidine (Pepcid) 20 mg IVP STAT STA Stop: 08/09/18 22:54 Sodium Chloride (Sodium Chloride 0.9%) 1,000 mls @ 999 mls/hr IV .Q1H1M STA Stop: 08/09/18 23:53 Ketorolac Tromethamine (Toradol) 30 mg IVP STAT STA Stop: 08/09/18 22:54 Disposition/Present on Arrival - Present on Arrival Any Indicators Present on Arrival: No History of DVT/PE: No History of Uncontrolled Diabetes: No Urinary Catheter: No History of Decub. Ulcer: No History Surgical Site Infection Following: None - Disposition Have Diagnosis and Disposition been Completed?: Yes Diagnosis: Abdominal pain, Left against medical advice, UTI (urinary tract infection) Disposition: AGAINST MEDICAL ADVICE Disposition Time: 23:45 Condition: GUARDED Discharge Instructions (ExitCare): Urinary Tract Infections in Adults, Acute Abdomen (Belly Pain), Leaving Against Medical Advice Additional Instructions: Keflex every 12 hours for 7 days Increase fluids Followup with primary doctor within 2 days Return to ER if you wish to be re-evaluated or if symptoms worsen/persist Prescriptions: Cephalexin [Keflex] 500 mg PO Q12 7 Days #14 capsule Referrals: [facility] [place] - Follow up with primary Judie Harrison MD [Medical Doctor] - Follow up with primary
[2018-08-09 22:58] LABS: URINE RBC TNTC /hpf (0-2)
[2018-08-09 23:05] LABS: INR 1.1; PARTIAL THROMBOPLASTIN TIME 29.6 Seconds (26.9-38.3); PROTHROMBIN TIME 12.2 SECONDS (9.4-12.5)
[2018-08-09 23:09] LABS: ALB/GLOB RATIO 1.2 (1.1-1.8); ALBUMIN 4.5 g/dL (3.0-4.8); ALT/SGPT 17 U/L (7-56); AST/SGOT 22 U/L (14-36); BLOOD UREA NITROGEN 20 mg/dL (7-21); CALCIUM 9.7 mg/dL (8.4-10.5); GFR NON-AFRICAN AMERICAN > 60; LIPASE 91 U/L (23-300)
[2018-08-09 23:20] LABS: TROPONIN I < 0.01 ng/mL
== END 2018-08-09 23:48 | disposition left against medical advice (07) ==
LOC: ED 22:01
DX: N39.0 Urinary tract infection, site not specified (principal); R10.9 Unspecified abdominal pain
CPT/HCPCS: 80053; 81001; 81025; 83690; 83735; 84484; 85025; 85610; 85730; 87086; 96374; 96375; 99283; J1885; J2405; J7030